=== PATIENT | female | born 1985 | race African-American/Black ===

== ENCOUNTER 2020-01-06 11:21 | Emergency (ER) | payer OTHER ==
[~2020-01-06] VITALS: Ht 177.8 cm; Wt 143.3 kg
[2020-01-06] MEDS ORDERED: NITROGLYCERIN SUBLINGUAL 0.4 MG BOTTLE OF 25. SL PRN (12:00)
[2020-01-06] MEDS ORDERED: ASPIRIN 325 MG TABLET PO ONE (12:00)
--- NOTE | 2020-01-06 12:06 | PHYS DOC ---
Past Medical History Past Medical History: Diabetes-Type II, High Cholesterol, Hypertension Additional Past Medical Histor: obesity Past Surgical History: No Surgical History Smoking Status: Light Tobacco Smoker Alcohol Use: None Drug Use: None General Adult EDM: Chief Complaint: HYPERGLYCEMIA HPI: HPI: Patient is a 34 year old AA female who presents to the emergency department with complaints of high blood sugar this morning and tightness in the left side of her chest since last night. She also complains of pain in her left shoulder for a month. She reports a history of high blood pressure, high cholesterol, obesity, and type 2 diabetes. Patient states she has been seeing her primary care doctor for a couple months about the intermittent chest pain and has had 2 negative work-ups, the first by her primary care doctor, Dr. Mckeon, and the second at another hospital. She denies any nausea, vomiting, abdominal pain, shortness of breath, cough, fever, dizziness, swelling, or dizziness. She reports that this morning her blood sugar was 453, she states she has had problems with high blood sugar for several months and her doctors trying to get it regulated. She denies any polydipsia, polyuria, or polyphagia. She currently rates the pain in her shoulder in her chest and 9 out of 10 on the pain scale, she denies any alleviating or exacerbating factors, the pain does not radiate anywhere. Review of Systems: Review of Systems: Constitutional: Denies fever or chills. [] Eyes: Denies change in visual acuity. [] HENT: Denies nasal congestion or sore throat. [] Respiratory: Denies cough or shortness of breath. [] Cardiovascular: Denies or edema; see HPI. [] GI: Denies abdominal pain, nausea, vomiting, or diarrhea. [] : Denies dysuria. [] Musculoskeletal: Denies back pain or joint pain. [] Integument: Denies rash. [] Neurologic: Denies headache, focal weakness or sensory changes. [] Endocrine: Denies polyuria or polydipsia; see HPI. [] Psychiatric: Denies depression or anxiety. [] Heart Score: HEART Score for Chest Pain: HEART Score for Chest Pain Response (Comments) Value History Slighlty/Non-Suspicious 0 ECG Normal 0 Age < 45 0 Risk Factors >3 Risk Factors or Hx CAD 2 Troponin < Normal Limit 0 Total 2 Risk Factors: Risk Factors: DM, Current or recent (<one month) smoker, HTN, HLP, family history of CAD, obesity. Risk Scores: Score 0 - 3: 2.5% MACE over next 6 weeks - Discharge Home Score 4 - 6: 20.3% MACE over next 6 weeks - Admit for Clinical Observation Score 7 - 10: 72.7% MACE over next 6 weeks - Early Invasive Strategies Current Medications: Current Medications Medications (Trade) Dose Ordered Sig/Jenny Start Time Stop Time Status Last Admin Dose Admin Aspirin (Belem Aspirin) 325 mg 1X ONCE 01/06/20 12:00 01/06/20 12:01 Nitroglycerin (Nitrostat) 0.4 mg PRN Q5MIN PRN 01/06/20 12:00 Allergies: Allergies: Allergies Coded Allergies Type Severity Reaction Last Updated Verified lisinopril Allergy Severe Anaphylaxis 01/06/20 Yes Physical Exam: PE: Constitutional: Well developed, well nourished, no acute distress, non-toxic appearance, morbidly obese. [] HENT: Normocephalic, atraumatic, bilateral external ears normal, oropharynx moist, nose normal. [] Eyes: PERRLA, EOMI, conjunctiva normal, no discharge. [] Neck: Normal range of motion, no stridor. [] Cardiovascular:Heart rate regular rhythm, no murmur [] Lungs & Thorax: Bilateral breath sounds clear to auscultation, Respirations even and unlabored, no retractions, no respiratory distress [] Abdomen: soft, no tenderness Skin: Warm, dry, no erythema, no rash. [] Back: No tenderness Extremities: No cyanosis, no clubbing, ROM intact, no edema. [] Neurologic: Alert and oriented X 3, no focal deficits noted. [] Psychologic: Affect normal, judgement normal, mood normal. [] EKG: EK-sinus rhythm, no STEMI, rate 88, read by Dr. Guadarrama [] Radiology/Procedures: Radiology/Procedures: PROCEDURE: CHEST AP ONLY CHEST AP ONLY History: Reason: chest pain / Spl. Instructions: / History: Comparison: December 03, 2004 Findings: No consolidation or pleural effusion. Normal heart size. No pneumothorax. Impression: 1. No acute cardiopulmonary process. Course & Med Decision Making: Course & Med Decision Making Pertinent Labs and Imaging studies reviewed. (See chart for details) Patient is a 34-year-old female who presents to the emergency department with complaints of hyperglycemia, left shoulder pain for the last month, and left- sided chest tightness since last night. Work-up includes labs, EKG, and chest x-ray. EKG is unremarkable.. Chest x-ray is unremarkable CBC is unremarkable; PT/INR within normal limits, d-dimer 0.28; CMP reveals a sodium of 134 (corrected sodium is 137), chloride of 97, glucose of 302, magnesium of 1.6, otherwise unremarkable; troponins x2 were less than 0.017 CK index is negative. Patient remained chest pain-free throughout her emergency department visit. Heart score is a 2, vital signs are stable. Advised the patient that she needs to follow-up with her primary care doctor for further evaluation, recommended that the patient stop smoking cigarettes and eat a diet that does not consist of simple carbohydrates and simple sugars. Patient verbalized an understanding of home care, medications, follow-up, and return to ED instructions and was in agreement with the plan of care. [] Vinicius Disclaimer: Dragpatti Disclaimer: This electronic medical record was generated, in whole or in part, using a voice recognition dictation system. Departure Departure Impression: Primary Impression: Nonspecific chest pain Additional Impression: Hyperglycemia Disposition: 01 HOME, SELF-CARE Condition: STABLE Patient Instructions: Chest Pain (Nonspecific), [id number], Diets for Diabetes, Food Labeling, Hyperglycemia, [id number] Additional Instructions: Follow-up with your primary care doctor or use the list of primary care doctors provided to you for further evaluation of your reoccurring chest pain and management of your diabetes. Return to the ER if your symptoms worsen. Justicifation of Admission Dx: Justifications for Admission: Justification of Admission Dx: N/A JEANETTE EDWARDS APRN Jan 06, 2020 12:06
[2020-01-06 12:24] LABS: BASO % 0 % (0-3); EOS # 0.3 x10^3/uL (0.0-0.7); EOS % 3 % (0-3); HEMATOCRIT 43.6 % (36.0-47.0); HEMOGLOBIN 14.9 g/dL (12.0-15.5); LYMPH % 36 % (24-48); MEAN CORPUSCULAR HEMOGLOBIN 27 pg (25-35); MEAN CORPUSCULAR HGB CONC 34 g/dL (31-37); MEAN CORPUSCULAR VOLUME 79 fL (79-100); MONO # 0.5 x10^3/uL (0.0-1.1); MONO % 6 % (0-9); NEUT # 4.6 x10^3/uL (1.8-7.7); NEUT % 56 % (31-73); PLATELET COUNT 313 x10^3/uL (140-400); RED BLOOD COUNT 5.53 x10^6/uL (3.50-5.40); WHITE BLOOD COUNT 8.3 x10^3/uL (4.0-11.0)
[2020-01-06 12:37] LABS: PROTHROMBIN TIME PATIENT 13.1 SEC (11.7-14.0)
[2020-01-06 12:38] LABS: CALCIUM 8.9 mg/dL (8.5-10.1); CREATININE 0.8 mg/dL (0.6-1.0); GFR 99.4; POTASSIUM 4.3 mmol/L (3.5-5.1)
[2020-01-06 12:40] LABS: BILIRUBIN,URINE NEGATIVE (NEG); CLARITY,URINE CLEAR; COLOR,URINE YELLOW; NITRITE,URINE NEGATIVE (NEG); PH,URINE 5.5 (<5.0-8.0); PROTEIN,URINE 100 mg/dL (NEG-TRACE); UROBILINOGEN,URINE 0.2 mg/dL (0.2 mg/dL)
--- NOTE | 2020-01-06 12:43 | RAD ---
CHEST AP ONLY History: Reason: chest pain / Spl. Instructions: / History: Comparison: December 03, 2004 Findings: No consolidation or pleural effusion. Normal heart size. No pneumothorax. Impression: 1. No acute cardiopulmonary process. Electronically signed by: Skip De León DO (01/06/2020 12:39 PM) [id number]
[2020-01-06 12:44] LABS: ALBUMIN 3.3 g/dL (3.4-5.0); ALBUMIN/GLOBULIN RATIO 0.6 (1.0-1.7); MAGNESIUM 1.6 mg/dL (1.8-2.4); TOTAL BILIRUBIN 0.3 mg/dL (0.2-1.0); TOTAL PROTEIN 8.4 g/dL (6.4-8.2)
[2020-01-06 12:51] LABS: HYALINE CASTS, URINE FEW /HPF; SQUAMOUS EPITHELIAL CELL,UR MANY /LPF
[2020-01-06 12:51] LABS: CREATINE KINASE 122 U/L (26-192)
[2020-01-06 12:52] LABS: BACTERIA,URINE FEW /HPF (0-FEW); RBC,URINE 0 /HPF (0-2)
[2020-01-06 13:15] LABS: D-DIMER 0.28 ug/mlFEU (0.00-0.50)
[2020-01-06] MEDS ORDERED: IV NORMAL SALINE 1000ML BAG 1,000 ML IV ONE (13:30)
[2020-01-06 15:35] VITALS: BP 156/91
--- NOTE | 2020-01-07 05:07 | EKG ---
[facility] [address] [place] [id number] Test Date: 2020-01-06 Test Time: 11:44:47 Pat Name: GHASSAN MULLINS Department: Room: Gender: F Programming Specialist: : [id number] Requested By: JEANETTE EDWARDS Order Number: [id number] Reading MD: Measurements Intervals [place] Rate: 88 P: 49 NE: 160 QRS: 13 QRSD: 74 T: 32 QT: 336 QTc: 410 Interpretive Statements SINUS RHYTHM NO SPECIFIC ECG ABNORMALITIES RI6.01 No previous ECG available for comparison
== END 2020-01-06 15:45 | disposition home or self-care (01) ==
LOC: ER 11:21
DX: R07.89 Other chest pain (principal); E11.65 Type 2 diabetes mellitus with hyperglycemia; M25.512 Pain in left shoulder; E78.00 Pure hypercholesterolemia, unspecified; I10 Essential (primary) hypertension; E66.9 Obesity, unspecified; Z68.42 Body mass index [BMI] 45.0-49.9, adult; Z87.891 Personal history of nicotine dependence; Z88.6 Allergy status to analgesic agent
CPT/HCPCS: 36415; 71045; 80053; 81001; 81025; 82553; 82962; 83690; 83735; 83880; 84484; 85025; 85379; 85610; 85730; 93005; 96360; 99285; J7030